=== PATIENT | female | born 1980 | race Caucasian/White ===

== ENCOUNTER 2017-11-19 17:46 | Emergency (ER) | payer SELFPAY ==
[2017-11-19 18:12] LABS: #Basophils 0.1 thou/uL (0.0-0.2); #Eosinphils 0.1 thou/uL (0.0-0.7); #Lymphocytes 2.9 thou/uL (1.20-3.40); #Monocytes 0.7 thou/uL (0.11-0.59); #Neutrophils 3.8 thou/uL (1.40-6.50); %Basophils 0.7 % (0.0-1.0); %Eosinophils 1.9 % (0.0-10.0); %Lymphocytes 38.2 % (21.0-51.0); %Monocytes 9.3 % (0.0-10.0); %Neutrophils 49.9 % (42.0-75.0); Hemoglobin 13.4 g/dL (12.0-16.0); Mean Corpuscular HGB CONC 34.8 g/dL (32.0-36.0); Mean Corpuscular Hemoglobin 30.9 pg (27.0-31.0); Mean Corpuscular Volume 88.8 fL (78.0-98.0); Mean Platelet Volume 8.8 fL (7.4-10.4); Platelet Count 200 thou/uL (130-400); Red Blood Cell (RBC) Count 4.35 mill/uL (4.20-5.40); White Blood Cell (WBC) Count 7.7 thou/uL (4.8-10.8)
[2017-11-19 18:24] LABS: BHCG - Serum Negative (NEGATIVE); Pregs Control Background? CLEAR/WHITE (CLR/WHITE); Pregs Control Bar Appear? YES (CONTROL BAR)
[2017-11-19 18:37] LABS: ALT (SGPT) 13 U/L (8-55); AST (SGOT) 20 U/L (5-34); Albumin 4.5 g/dL (3.5-5.0); Alkaline Phosphatase 105 U/L (40-150); Anion Gap 13 mmol/L (10-20); BUN (Urea Nitrogen) 8 mg/dL (7.0-18.7); Bilirubin, Total 0.6 mg/dL (0.2-1.2); CK (CPK) 76 U/L (29-168); Calc. Creatinine Clearance 0 mL/min (70-130); Calcium 9.6 mg/dL (7.8-10.44); Carbon Dioxide 24 mmol/L (22-29); Chloride 105 mmol/L (98-107); Estimated GFR-MDRD 90; Globulin 2.9 g/dL (2.4-3.5); Glucose 118 mg/dL (70-105); Potassium 3.9 mmol/L (3.5-5.1); Protein, Total 7.4 g/dL (6.0-8.3); Sodium 138 mmol/L (136-145); Troponin I Less than 0.010 ng/mL (< 0.028)
[2017-11-19] MEDS ORDERED: Lorazepam 2 MG/ML VIAL ONE (18:47)
--- NOTE | 2017-11-19 19:16 | RAD ---
PORTABLE AP CHEST X-RAY 11/19/17 HISTORY: Chest pain. COMPARISON: 10/08/09. FINDINGS: The cardiac silhouette and pulmonary vasculature are within normal limits. The lungs remain clear. Th ere has been no interval change from prior exam. IMPRESSION: No acute cardiopulmonary process. POS: [facility]
== END 2017-11-19 19:42 | disposition home or self-care (01) ==
LOC: ERS 17:46
DX: F41.9 Anxiety disorder, unspecified (principal); R07.89 Other chest pain; F17.210 Nicotine dependence, cigarettes, uncomplicated
CPT/HCPCS: 36415; 71045; 80053; 82553; 84484; 84703; 85025; 93005; 96372; J2060

== ENCOUNTER 2018-03-03 09:21 | Emergency (ER) | payer SELFPAY ==
--- NOTE | 2018-03-03 10:14 | RAD ---
RIGHT KNEE 4 VIEWS: Date: 03/03/18 HISTORY: injury, right knee pain. FINDINGS/IMPRESSION: No acute fracture or dislocation is identified. POS: [facility]
--- NOTE | 2018-03-03 10:15 | RAD ---
RIGHT ANKLE 3 VIEWS: Date: 03/03/18 HISTORY: Injury, right ankle pain. FINDINGS/IMPRESSION: The ankle mortise is maintained. No acute fracture or dislocation is seen. POS: [facility]
== END 2018-03-03 10:09 | disposition home or self-care (01) ==
LOC: ERS 09:21
DX: S83.91XA Sprain of unspecified site of right knee, initial encounter (principal); S93.401A Sprain of unspecified ligament of right ankle, initial encounter; F41.8 Other specified anxiety disorders; F17.210 Nicotine dependence, cigarettes, uncomplicated; Z71.6 Tobacco abuse counseling; W23.0XXA Caught, crushed, jammed, or pinched between moving objects, initial encounter
CPT/HCPCS: 99406

== ENCOUNTER 2018-06-08 01:30 | Emergency (ER) | payer SELFPAY ==
[2018-06-08 01:57] LABS: #Basophils 0.1 thou/uL (0.0-0.2); #Eosinphils 0.1 thou/uL (0.0-0.7); #Monocytes 1.1 thou/uL (0.11-0.59); %Basophils 0.9 % (0.0-1.0); %Eosinophils 1.4 % (0.0-10.0); %Lymphocytes 48.7 % (21.0-51.0); %Neutrophils 36.1 % (42.0-75.0); Hemoglobin 13.9 g/dL (12.0-16.0); Mean Corpuscular HGB CONC 33.9 g/dL (32.0-36.0); Mean Corpuscular Hemoglobin 31.2 pg (27.0-31.0); Mean Corpuscular Volume 92.1 fL (78.0-98.0); Mean Platelet Volume 8.7 fL (7.4-10.4); Platelet Count 199 thou/uL (130-400); RBC Distribution Width 11.9 % (11.5-14.5); Red Blood Cell (RBC) Count 4.46 mill/uL (4.20-5.40); White Blood Cell (WBC) Count 8.2 thou/uL (4.8-10.8)
[2018-06-08 02:18] LABS: ALT (SGPT) 14 U/L (8-55); AST (SGOT) 21 U/L (5-34); Albumin 4.2 g/dL (3.5-5.0); Alkaline Phosphatase 102 U/L (40-150); Anion Gap 14 mmol/L (10-20); BUN (Urea Nitrogen) 11 mg/dL (7.0-18.7); Bilirubin, Total 0.3 mg/dL (0.2-1.2); Calc. Creatinine Clearance 0 mL/min (70-130); Calcium 9.1 mg/dL (7.8-10.44); Carbon Dioxide 22 mmol/L (22-29); Chloride 107 mmol/L (98-107); Estimated GFR-MDRD 90; Globulin 2.8 g/dL (2.4-3.5); Glucose 110 mg/dL (70-105); Lipase 26 U/L (8-78); Potassium 3.9 mmol/L (3.5-5.1); Sodium 139 mmol/L (136-145)
[2018-06-08] MEDS ORDERED: Ondansetron PF 4 MG/2 ML Vial ONE (02:36)
[2018-06-08] MEDS ORDERED: Morphine 4 MG/ML VIAL ONE (02:36)
--- NOTE | 2018-06-08 07:45 | ULT ---
RIGHT UPPER QUADRANT ULTRASOUND: INDICATION: Epigastric abdominal pain with nausea and vomiting. TECHNIQUE: Gregg scale color Doppler images were obtained in a right upper quadrant of the abdomen. COMPARISON: Prior exam dated 12/19/2010. FINDINGS: No focal hepatic lesion is identified. The liver measured 13.5 cm. The gallbladder is incompletely distended. Gallbladder wall measured 2.8 mm; however, there is no ev idence of pericholecystic fluid or sonographic Bernal's sign. The common bile duct measured 2.5 mm. Pancreas was largely obscured by overlying bowel gas. The right kidney measured 10.6 x 4.2 x 4.6 cm. No focal renal lesion or hydronephrosis is evident. IMPRESSION: No definite acute sonographic abnormality within the right upper quadrant. POS: [facility]
--- NOTE | 2018-06-08 07:56 | RAD ---
CHEST ONE VIEW: INDICATIONS: Pain. COMPARISON: Prior exam dated 11/19/2017. FINDINGS: The lungs are clear. The cardiomediastinal silhouette is within normal limits. No acute osseous abn ormality is evident. IMPRESSION: No acute cardiopulmonary abnormalities. POS: [facility]
== END 2018-06-08 04:31 | disposition home or self-care (01) ==
LOC: ERS 01:30
DX: K80.50 Calculus of bile duct without cholangitis or cholecystitis without obstruction (principal); F17.210 Nicotine dependence, cigarettes, uncomplicated
CPT/HCPCS: 36415; 71045; 76705; 80053; 83690; 84484; 85025; 93005; 96361; 96374; 96375; J2270; J2405

== ENCOUNTER 2018-12-20 19:07 | Emergency (ER) | payer SELFPAY ==
[2018-12-20 20:59] LABS: #Eosinphils 0.1 thou/uL (0.0-0.7); #Lymphocytes 1.8 thou/uL (1.20-3.40); #Monocytes 0.7 thou/uL (0.11-0.59); #Neutrophils 6.5 thou/uL (1.40-6.50); %Basophils 0.5 % (0.0-1.0); %Eosinophils 0.8 % (0.0-10.0); %Lymphocytes 19.8 % (21.0-51.0); %Monocytes 7.7 % (0.0-10.0); %Neutrophils 71.2 % (42.0-75.0); Hemoglobin 13.8 g/dL (12.0-16.0); Mean Corpuscular Hemoglobin 31.7 pg (27.0-31.0); Mean Corpuscular Volume 93.4 fL (78.0-98.0); Mean Platelet Volume 9.6 fL (7.4-10.4); Platelet Count 199 thou/uL (130-400); RBC Distribution Width 12.1 % (11.5-14.5); Red Blood Cell (RBC) Count 4.36 mill/uL (4.20-5.40); White Blood Cell (WBC) Count 9.2 thou/uL (4.8-10.8)
[2018-12-20 21:15] LABS: ALT (SGPT) 15 U/L (8-55); AST (SGOT) 19 U/L (5-34); Albumin 4.2 g/dL (3.5-5.0); Alkaline Phosphatase 107 U/L (40-150); Anion Gap 12 mmol/L (10-20); BUN (Urea Nitrogen) 7 mg/dL (7.0-18.7); Bilirubin, Total 0.6 mg/dL (0.2-1.2); Calc. Creatinine Clearance 0 mL/min (70-130); Calcium 8.9 mg/dL (7.8-10.44); Carbon Dioxide 25 mmol/L (22-29); Chloride 105 mmol/L (98-107); Estimated GFR-MDRD Greater than 90; Globulin 2.7 g/dL (2.4-3.5); Glucose 96 mg/dL (70-105); Potassium 3.7 mmol/L (3.5-5.1); Protein, Total 6.9 g/dL (6.0-8.3); Sodium 138 mmol/L (136-145)
[2018-12-20] MEDS ORDERED: Metoclopramide HCl 10 MG/2 ML VIAL ONE (21:20)
[2018-12-20] MEDS ORDERED: diphenhydrAMINE 50 MG/ML VIAL ONE (21:22)
--- NOTE | 2018-12-20 22:40 | CT ---
CT Brain WO Con: 12/20/2018 12:00 AM CLINICAL HISTORY: History of headaches. IMAGING TECHNIQUE: Multiple CT images were obtained of the brain without IV contrast. COMPARISON: None. FINDINGS: Infarct: No acute infarct evident. Hemorrhage: None.. Hydrocephalus: None.. Basal cisterns: Normal.. Cerebral parenchyma: Normal.. Midline shift: None.. Cerebellum: Normal. Brainstem: Normal. OTHER: Calvarium: Intact.. Visualized Paranasal sinuses: Clear.. Extracranial soft tissues:Normal. IMPRESSION: No acute intracranial abnormality.
[2018-12-20] MEDS ORDERED: Ketorolac Tromethamine 30 MG/ML VIAL ONE (23:35)
== END 2018-12-21 00:53 | disposition home or self-care (01) ==
LOC: ERS 19:07
DX: R51 Headache (principal); F41.9 Anxiety disorder, unspecified; F17.210 Nicotine dependence, cigarettes, uncomplicated
CPT/HCPCS: 36415; 70450; 80053; 82550; 85025; 96361; 96374; 96375; J1200; J1885; J2765

== ENCOUNTER 2019-02-10 08:38 | Emergency (ER) | payer SELFPAY ==
--- NOTE | 2019-02-10 09:01 | RAD ---
Exam:4 views right knee HISTORY: Pain. Injury. COMPARISON: 03/03/2018 FINDINGS: Joint spaces are preserved. No fracture or malalignment. Confusion. IMPRESSION: Unremarkable 4 views right knee
[2019-02-10] MEDS ORDERED: Ketorolac Tromethamine 30 MG/ML VIAL ONE (09:27)
== END 2019-02-10 09:48 | disposition home or self-care (01) ==
LOC: ERS 08:38
DX: M25.561 Pain in right knee (principal); F17.210 Nicotine dependence, cigarettes, uncomplicated; X50.1XXA Overexertion from prolonged static or awkward postures, initial encounter
CPT/HCPCS: 96372; J1885

== ENCOUNTER 2019-03-09 14:04 | Emergency (ER) | payer SELFPAY ==
[2019-03-09 15:16] LABS: #Basophils 0.1 thou/uL (0.0-0.2); #Eosinphils 0.1 thou/uL (0.0-0.7); #Lymphocytes 2.5 thou/uL (1.20-3.40); #Monocytes 0.8 thou/uL (0.11-0.59); #Neutrophils 5.2 thou/uL (1.40-6.50); %Basophils 0.9 % (0.0-1.0); %Eosinophils 1.2 % (0.0-10.0); %Monocytes 9.2 % (0.0-10.0); %Neutrophils 59.7 % (42.0-75.0); Hemoglobin 13.4 g/dL (12.0-16.0); Mean Corpuscular Hemoglobin 31.5 pg (27.0-31.0); Mean Corpuscular Volume 92.8 fL (78.0-98.0); Mean Platelet Volume 9.2 fL (7.4-10.4); Platelet Count 247 thou/uL (130-400); RBC Distribution Width 11.6 % (11.5-14.5); Red Blood Cell (RBC) Count 4.25 mill/uL (4.20-5.40); White Blood Cell (WBC) Count 8.7 thou/uL (4.8-10.8)
[2019-03-09 15:49] LABS: Bacteria/HPF 4+ HPF (None Seen); Bilirubin Negative (Negative); Blood, Urine Trace (Negative); Clarity Clear (Clear); Glucose, Urine (Dipstick) Normal (Negative); Leukocyte Negative Leu/uL (Negative); Nitrite Negative (Negative); Protein, Urine (Dipstick) Negative (Neg-Trace); RBC/HPF 0-3 HPF (0-3); Squamous Epithelial 0-3 HPF (0-3); Urobilinogen Normal mg/dL (Less than 2); WBC/HPF 0-3 HPF (0-3)
[2019-03-09 15:50] LABS: Pregnancy Test - Urine (BHCG) Negative (Negative); Pregu Control Background? CLEAR/WHITE (CLR/WHITE); Pregu Control Bar Appear? YES (CONTROL BAR); Specific Gravity 1.003 (1.002-1.036)
[2019-03-09 16:00] LABS: Albumin 4.9 g/dL (3.5-5.0); Sodium 139 mmol/L (136-145)
[2019-03-09 16:01] LABS: ALT (SGPT) 15 U/L (8-55); AST (SGOT) 28 U/L (5-34); Alkaline Phosphatase 118 U/L (40-110); Anion Gap 17 mmol/L (10-20); BUN (Urea Nitrogen) 8 mg/dL (7.0-18.7); Bilirubin, Total 0.5 mg/dL (0.2-1.2); Calc. Creatinine Clearance 0 mL/min (70-130); Calcium 9.7 mg/dL (7.8-10.44); Carbon Dioxide 22 mmol/L (22-29); Chloride 104 mmol/L (98-107); Estimated GFR-MDRD 77; Globulin 3.6 g/dL (2.4-3.5); Glucose 94 mg/dL (70-105); Potassium 4.3 mmol/L (3.5-5.1); Protein, Total 8.5 g/dL (6.0-8.3)
== END 2019-03-09 16:26 | disposition home or self-care (01) ==
LOC: ERS 14:04
DX: R00.2 Palpitations (principal); F17.210 Nicotine dependence, cigarettes, uncomplicated
CPT/HCPCS: 36415; 80053; 81003; 81015; 81025; 84484; 85025; 85379; 93005; 94760

== ENCOUNTER 2019-03-17 18:50 | Observation (INO) | payer SELFPAY ==
[2019-03-17] MEDS ORDERED: Ibuprofen 800 MG TAB ONE (20:06)
[2019-03-17 20:09] LABS: BHCG - Serum Negative (NEGATIVE); Pregs Control Background? CLEAR/WHITE (CLR/WHITE); Pregs Control Bar Appear? YES (CONTROL BAR)
[2019-03-17 20:31] LABS: Thyroid Stimulating Hormone 0.8633 uIU/mL (0.35-4.94)
[2019-03-17 20:48] LABS: ALT (SGPT) 9 U/L (8-55); AST (SGOT) 17 U/L (5-34); Albumin 4.7 g/dL (3.5-5.0); Alkaline Phosphatase 113 U/L (40-110); Anion Gap 12 mmol/L (10-20); BUN (Urea Nitrogen) 9 mg/dL (7.0-18.7); Bilirubin, Total 0.4 mg/dL (0.2-1.2); Calc. Creatinine Clearance 0 mL/min (70-130); Calcium 9.2 mg/dL (7.8-10.44); Carbon Dioxide 26 mmol/L (22-29); Chloride 104 mmol/L (98-107); Estimated GFR-MDRD 83; Globulin 2.6 g/dL (2.4-3.5); Glucose 104 mg/dL (70-105); Potassium 4.1 mmol/L (3.5-5.1); Protein, Total 7.3 g/dL (6.0-8.3); Sodium 138 mmol/L (136-145)
--- NOTE | 2019-03-17 20:48 | RAD ---
Chest one view HISTORY: Chest pain. Tachycardia. COMPARISON: 06/08/2018. FINDINGS: Cardiac silhouette is magnified by projection. Pulmonary vasculature is unremarkable. Media stinum is midline. No lobar consolidation or evidence of pneumothorax. IMPRESSION: No active cardiopulmonary abnormalities are demonstrated.
[2019-03-17 21:03] LABS: #Basophils 0.1 thou/uL (0.0-0.2); #Eosinphils 0.1 thou/uL (0.0-0.7); #Lymphocytes 2.1 thou/uL (1.20-3.40); #Monocytes 0.8 thou/uL (0.11-0.59); #Neutrophils 4.6 thou/uL (1.40-6.50); %Basophils 0.7 % (0.0-1.0); %Eosinophils 0.8 % (0.0-10.0); %Lymphocytes 27.4 % (21.0-51.0); %Monocytes 10.8 % (0.0-10.0); %Neutrophils 60.4 % (42.0-75.0); Hemoglobin 12.9 g/dL (12.0-16.0); Mean Corpuscular HGB CONC 33.9 g/dL (32.0-36.0); Mean Corpuscular Hemoglobin 31.7 pg (27.0-31.0); Mean Corpuscular Volume 93.4 fL (78.0-98.0); Mean Platelet Volume 9.3 fL (7.4-10.4); Platelet Count 194 thou/uL (130-400); RBC Distribution Width 11.6 % (11.5-14.5); Red Blood Cell (RBC) Count 4.08 mill/uL (4.20-5.40); White Blood Cell (WBC) Count 7.6 thou/uL (4.8-10.8)
[2019-03-17 21:32] LABS: Amphetamine Not Detected (NotDetected); Barbiturates Screen Not Detected (NotDetected); Benzodiazepine Screen Not Detected (NotDetected); Cocaine Metabolite Screen Not Detected (NotDetected); Medtox Control Line Valid? VALID (VALID); Medtox Reader # READER 4; Methadone Not Detected (NotDetected); Methamphetamine Not Detected (NotDetected); Opiate Screen Not Detected (NotDetected); Oxycodone Screen Not Detected (NotDetected); Phencyclidine (PCP) Not Detected (NotDetected); THC/Cannabinoid Screen Not Detected (NotDetected); Tricyclic Screen Not Detected (NotDetected)
[2019-03-17] MEDS ORDERED: Aspirin 325 MG TAB ONE (23:33)
[2019-03-17] MEDS ORDERED: Acetaminophen 500 MG TAB ONE (23:33)
[2019-03-18 00:10] LABS: Troponin I Less than 0.010 ng/mL (< 0.028)
[2019-03-18 01:23] VITALS: BMI 26.3
[2019-03-18 03:45] LABS: Troponin I Less than 0.010 ng/mL (< 0.028)
[2019-03-18] MEDS ORDERED: ALPRAZolam 0.25 MG TAB PO PRN (08:01)
[2019-03-18] MEDS ORDERED: Nitroglycerin 0.4 MG TAB (25 Tab Bottle) PO PRN (08:05)
[2019-03-18] MEDS ORDERED: Ondansetron ODT 4 MG TAB PO PRN (08:08)
[2019-03-18] MEDS ORDERED: Acetaminophen 325 MG TAB PO PRN (08:08)
[2019-03-18] MEDS ORDERED: Ondansetron PF 4 MG/2 ML Vial IVP PRN (08:08)
[2019-03-18] MEDS ORDERED: Calcium Carbonate 500 MG ChewTAB PO PRN (08:08)
[2019-03-18] MEDS ORDERED: Loratadine 10 MG TAB PO PRN (08:11)
[2019-03-18] MEDS ORDERED: diphenhydrAMINE 25 MG CAP PO PRN (08:11)
[2019-03-18] MEDS: Famotidine 20 MG TAB PO SCH ×2 (08:43→20:29)
[2019-03-18] MEDS ORDERED: Aspirin 325 mg Enteric Coated Tablet PO SCH (09:00)
[2019-03-18] MEDS ORDERED: FLU VACC QS2019-20(6MOS UP)/PF 60 MCG/0.5 ML SYRINGE IM ONE (21:00)
--- NOTE | 2019-03-19 00:26 | HP ---
PRIMARY CARE PHYSICIAN: None. CHIEF COMPLAINT: Palpitations along with chest discomfort. HISTORY OF PRESENT ILLNESS: The patient is a 38-year-old female with tobacco dependence and family history of heart disease, presented to the hospital with palpitations that started while she was resting at home. Heart rate was in 150s to 160s. She checked her heart rate on the pulse ox machine. It lasted for few minutes and then it came back. She also had chest discomfort radiating to her left shoulder at that time. She felt nauseous without any lightheadedness, dizziness or syncope. No recent immobilization, travel, orthopnea, leg swelling reported. She had similar episode a year ago. She denies previous cardiac workup. In the emergency room, her initial vital signs showed temperature of 98.6, respirations of 16, pulse of 115, blood pressure of 138/89 with O2 saturation of 98% on room air. Her EKG showed sinus tachycardia with heart rate of 110. She received aspirin in the emergency room. PAST MEDICAL HISTORY: History of preeclampsia in the past and anxiety disorder. PAST SURGICAL HISTORY: 1. Appendectomy. 2. section x2. 3. Hysterectomy. 4. Right knee surgery. 5. Tonsillectomy. ALLERGIES: THE PATIENT IS ALLERGIC TO PENICILLIN AND HYDROCODONE. MEDICATIONS: Current home medications reviewed with the patient and none. SOCIAL HISTORY: The patient smokes up to half pack a day on a daily basis. She also consumes around [address] Pepper daily. She drinks alcohol 2 to 3 days a week. Denies any heavy alcohol abuse. Denies any drug use. FAMILY HISTORY: Positive for heart disease in her father. REVIEW OF SYSTEMS: All other review of systems were reviewed and were found negative. PHYSICAL EXAMINATION: VITAL SIGNS: As discussed above. GENERAL: 38-year-old female, in no apparent distress. Denies any chest discomfort at this time. HEENT: Head, atraumatic and normocephalic. Sclerae anicteric. Moist mucous membranes. No oral lesion. NECK: Supple. No JVD. No carotid bruit. LUNGS: Clear to auscultation bilaterally. No wheezing, rales or rhonchi. HEART: S1 and S2 present. Regular rate and rhythm. No rubs or gallops. There was 2/6 systolic murmur over the aortic area and mitral area. SKIN: Warm and dry. ABDOMEN: Soft and nontender. Bowel sounds present. EXTREMITIES: No edema or calf tenderness. NEUROLOGIC: Grossly nonfocal. Moves all 4 extremities. PSYCHIATRIC: Alert, awake, and oriented x3. LYMPH NODE: No palpable lymph nodes in the neck. LABORATORY FINDINGS: Electrolytes in normal range. BUN 9 and creatinine 0.78. WBC 7.6 with hemoglobin 12.9. Urine drug screen was negative. EKG by my review showed sinus tachycardia. Chest x-ray by my review was negative for infiltrate. IMPRESSION: 1. Chest pain with palpitations of unclear etiology. 2. Ongoing tobacco dependence. 3. Chronic kidney disease, stage 2. 4. Anxiety. PLAN: The patient will be monitored on the telemetry unit. Echocardiogram will be ordered. We will also get an exercise Cardiolite stress test. We will continue aspirin. Lifestyle modification including tobacco cessation was emphasized. It is unclear what rhythm she had at home and heart rate was in 150s. She may benefit from an event monitor as outpatient. Cardiology will be consulted. Her troponins were normal. Plan was discussed with the patient in detail. She stated understanding. Job ID: [id number]
--- NOTE | 2019-03-19 00:41 | CON ---
DATE OF CONSULTATION: 03/18/2019 REASON FOR CONSULTATION: Chest pressure, palpitations. HISTORY OF PRESENT ILLNESS: Ms. Borjas is a very pleasant 38-year-old woman admitted to the hospital yesterday with a feeling of pressure in her chest and a rapid heart rate. She had a pulse oximeter, heart rates, it is 130-140 and even up to 150. She had sinus tachycardia here, rate of 110. Cardiac enzymes were negative. EKG is otherwise unremarkable. The patient had never these episodes before. The patient otherwise has been in good physical condition. REVIEW OF SYSTEMS: CONSTITUTIONAL: No significant weight gain or loss. VISION: No changes. HEARING: No changes. PULMONARY: No cough or wheezing. GASTROINTESTINAL: No nausea, vomiting, diarrhea. SKIN: No rashes. NEUROLOGIC: No unilateral weakness or numbness. PSYCHIATRIC: No unusual depression or anxiety. PHYSICAL EXAMINATION: GENERAL: This is a pleasant 38-year-old woman resting comfortably, in no distress. VITAL SIGNS: Her blood pressure is 143/90, pulse 86 regular, earlier it was 104. LUNGS: Clear. CARDIAC: Normal S1, normal S2. ABDOMEN: Soft, nontender. EXTREMITIES: No clubbing. No cyanosis. No edema. Pulses are normal. The cardiac enzymes are all negative. Stress test was negative. She spent 10 minutes on a Albino protocol. No EKG changes. Echocardiogram was also normal. CONCLUSION: 1. No evidence of any stress-induced ischemia. 2. Normal echocardiogram. 3. Symptoms suggest inappropriate sinus tachycardia. The heart rate went up and down gradually. 4. Hypertension. PLAN: 1. Start on low-dose beta blockers. 2. Check a lipid profile tomorrow. 3. Recommend, she quit smoking. 4. No other recommendations. Job ID: [id number]
[2019-03-19 05:46] LABS: Cardiac Risk 2.8 (Less than 4.5)
[2019-03-19] MEDS: Famotidine 20 MG TAB PO SCH (07:48)
[2019-03-19 08:08] VITALS: TEMP 98.8
[2019-03-19] MEDS ORDERED: Aspirin 81 mg Enteric Coated Tablet PO SCH (09:00)
[2019-03-19 11:55] VITALS: BP 140/94
--- NOTE | 2019-03-20 21:48 | DIS ---
DATE OF ADMISSION: 03/18/2019 DATE OF DISCHARGE: 03/19/2019 FINAL DIAGNOSES AT THE TIME OF DISCHARGE: 1. Hypertension. 2. Chest pressure, resolved. 3. Inappropriate sinus tachycardia, resolved. ASP NET SOFTWARE DEVELOPER: Dr. Sandy, Cardiology Service. HOSPITAL COURSE: The patient is a 38-year-old female, who was admitted to the hospital with symptoms of palpitations along with some chest discomfort type of fullness. Apparently, she is a smoker and she has a family history of heart disease. She has some chest discomfort radiating to the left shoulder with heart rate up to 150s. She felt nauseous. Apparently, she had similar episodes a year ago. She denied any previous cardiac workup. In the emergency room, her pulse was up to 115, blood pressure was 138/89, pulse oximeter was 98% on room air. Electrocardiogram showed sinus tachycardia with heart rate of 110. She received aspirin in the emergency room and got admitted for further evaluation. Chest x-ray was negative. The patient was set up for Cardiolite stress test and Cardiology consultation. Her troponins were normal. Her echocardiogram came back normal, LVEF was estimated at 60% to 65%. Her stress test came back negative. There was no any evidence of stress-induced ischemia. The patient was placed on small dose of metoprolol succinate 25 mg once a day for her tachycardia and she is doing well. Her blood pressure is 148/90, pulse is 100, temperature is 98.6, respirations 16, and O2 saturation is 99% on room air. She is seen and examined before she is discharged and she is discharged home in good condition. MEDICATIONS: At time of discharge: 1. Metoprolol succinate 25 mg once a day. 2. Alprazolam 0.5 mg daily p.r.n. DIET: She is going to stay on regular diet. ACTIVITIES: As tolerated. She will establish relationship with primary care physician. We recommended her to go to [facility] since she has some financial issues in a week and she promised to do that. TIME SPENT: Time spent on this discharge is less than 30 minutes. Job ID: [id number]
== END 2019-03-19 12:15 | disposition home or self-care (01) ==
LOC: ERS 18:50 → 2SW 03-18 01:17
PROVIDERS: ADMIT Family Medicine; ATTEND Family Medicine
DX: R07.89 Other chest pain (principal); R00.0 Tachycardia, unspecified; I12.9 Hypertensive chronic kidney disease with stage 1 through stage 4 chronic kidney disease, or unspecified chronic kidney disease; N18.2 Chronic kidney disease, stage 2 (mild); F41.9 Anxiety disorder, unspecified; F17.210 Nicotine dependence, cigarettes, uncomplicated; Z79.899 Other long term (current) drug therapy; Z88.0 Allergy status to penicillin; Z88.5 Allergy status to narcotic agent
CPT/HCPCS: 36415; 71045; 80053; 80061; 80306; 84443; 84484; 84703; 85025; 90471; 90686; 90732; 93005; 93017; 93306; 96360; G0008; G0009; G0378

== ENCOUNTER 2019-05-18 09:32 | Emergency (ER) | payer SELFPAY ==
[2019-05-18 10:02] LABS: #Basophils 0.1 thou/uL (0.0-0.2); #Eosinphils 0.1 thou/uL (0.0-0.7); #Lymphocytes 1.6 thou/uL (1.20-3.40); #Monocytes 0.7 thou/uL (0.11-0.59); #Neutrophils 5.6 thou/uL (1.40-6.50); %Basophils 0.8 % (0.0-1.0); %Eosinophils 0.8 % (0.0-10.0); %Lymphocytes 19.7 % (21.0-51.0); %Neutrophils 69.8 % (42.0-75.0); Hemoglobin 13.2 g/dL (12.0-16.0); Mean Corpuscular HGB CONC 33.7 g/dL (32.0-36.0); Mean Corpuscular Hemoglobin 31.1 pg (27.0-31.0); Mean Corpuscular Volume 92.1 fL (78.0-98.0); Mean Platelet Volume 9.9 fL (7.4-10.4); Platelet Count 183 thou/uL (130-400); RBC Distribution Width 11.3 % (11.5-14.5); Red Blood Cell (RBC) Count 4.26 mill/uL (4.20-5.40)
[2019-05-18 10:21] LABS: ALT (SGPT) 13 U/L (8-55); AST (SGOT) 18 U/L (5-34); Albumin 4.2 g/dL (3.5-5.0); Alkaline Phosphatase 93 U/L (40-110); Anion Gap 12 mmol/L (10-20); BUN (Urea Nitrogen) 5 mg/dL (7.0-18.7); Bilirubin, Total 1.1 mg/dL (0.2-1.2); Calc. Creatinine Clearance 0 mL/min (70-130); Calcium 8.9 mg/dL (7.8-10.44); Carbon Dioxide 24 mmol/L (22-29); Chloride 106 mmol/L (98-107); Estimated GFR-MDRD Greater than 90; Globulin 2.8 g/dL (2.4-3.5); Glucose 79 mg/dL (70-105); Potassium 3.9 mmol/L (3.5-5.1); Sodium 138 mmol/L (136-145)
[2019-05-18 11:25] LABS: Bacteria/HPF 1+ HPF (None Seen); Bilirubin Negative (Negative); Blood, Urine 1+ (Negative); Clarity Clear (Clear); Glucose, Urine (Dipstick) Normal (Negative); Leukocyte Negative Leu/uL (Negative); Nitrite Negative (Negative); Protein, Urine (Dipstick) Negative (Neg-Trace); RBC/HPF 0-3 HPF (0-3); Squamous Epithelial 0-3 HPF (0-3); Urobilinogen Normal mg/dL (Less than 2); WBC/HPF 0-3 HPF (0-3)
== END 2019-05-18 11:55 | disposition home or self-care (01) ==
LOC: ERS 09:32
DX: I95.9 Hypotension, unspecified (principal); R42 Dizziness and giddiness; R55 Syncope and collapse; T43.225A Adverse effect of selective serotonin reuptake inhibitors, initial encounter; F17.210 Nicotine dependence, cigarettes, uncomplicated; Z79.899 Other long term (current) drug therapy
CPT/HCPCS: 80053; 81003; 81015; 84484; 85025; 93005

== ENCOUNTER 2019-05-19 02:09 | Emergency (ER) | payer SELFPAY ==
[2019-05-19] MEDS ORDERED: Meclizine HCl 25 MG TAB ONE ×2 (02:41→02:42)
[2019-05-19] MEDS ORDERED: Ondansetron ODT 8 MG TAB ONE (02:41)
== END 2019-05-19 03:25 | disposition home or self-care (01) ==
LOC: ERS 02:09
DX: R42 Dizziness and giddiness (principal); R11.2 Nausea with vomiting, unspecified; F41.1 Generalized anxiety disorder; F43.0 Acute stress reaction; F17.210 Nicotine dependence, cigarettes, uncomplicated; Z79.899 Other long term (current) drug therapy
CPT/HCPCS: 99283; J8597

== ENCOUNTER 2019-07-15 20:26 | Emergency (ER) | payer SELFPAY ==
[~2019-07-15 20:26] MED LIST: Iopamidol-370 76% 500 ML 1 ML ONE
[2019-07-15 21:14] LABS: Hemoglobin 14.5 g/dL (12.0-16.0); Mean Corpuscular HGB CONC 33.6 g/dL (32.0-36.0); Mean Corpuscular Hemoglobin 31.5 pg (27.0-31.0); Mean Corpuscular Volume 93.6 fL (78.0-98.0); Platelet Count 206 thou/uL (130-400); RBC Distribution Width 11.7 % (11.5-14.5); Red Blood Cell (RBC) Count 4.59 mill/uL (4.20-5.40); White Blood Cell (WBC) Count 14.4 thou/uL (4.8-10.8)
[2019-07-15 21:25] LABS: ALT (SGPT) 13 U/L (8-55); AST (SGOT) 22 U/L (5-34); Albumin 4.8 g/dL (3.5-5.0); Alkaline Phosphatase 107 U/L (40-110); Anion Gap 14 mmol/L (10-20); BUN (Urea Nitrogen) 8 mg/dL (7.0-18.7); Bilirubin, Total 0.6 mg/dL (0.2-1.2); Calc. Creatinine Clearance 0 mL/min (70-130); Calcium 9.6 mg/dL (7.8-10.44); Carbon Dioxide 24 mmol/L (22-29); Chloride 103 mmol/L (98-107); Estimated GFR-MDRD 86; Globulin 2.9 g/dL (2.4-3.5); Glucose 117 mg/dL (70-105); Lipase 26 U/L (8-78); Potassium 3.6 mmol/L (3.5-5.1); Protein, Total 7.7 g/dL (6.0-8.3); Sodium 137 mmol/L (136-145)
[2019-07-15 21:31] LABS: Band 1 % (5-11); Eosinophils 30 % (0-10); Lymphocytes 30 % (21-51); MDiff Complete? YES; Monocytes 3 % (0-10); Neutrophil 36 % (42-75); RBC Morphology Normal
[2019-07-15 21:48] LABS: Bilirubin Negative (Negative); Blood, Urine Small (Negative); Glucose, Urine (Dipstick) Negative (Negative); Leukocyte Negative (Negative); Nitrite Negative (Negative); Protein, Urine (Dipstick) Negative (Neg-Trace); Urobilinogen 0.2 mg/dL (Less than 2)
[2019-07-15 21:49] LABS: Clarity Clear (Clear)
[2019-07-15 21:51] LABS: Pregnancy Test - Urine (BHCG) Negative (Negative)
[2019-07-15 21:52] LABS: Pregu Control Background? CLEAR/WHITE (CLR/WHITE); Pregu Control Bar Appear? YES (CONTROL BAR); Specific Gravity 1.003 (1.002-1.036)
[2019-07-15 21:54] LABS: RBC/HPF 0-3 HPF (0-3); Squamous Epithelial 0-3 HPF (0-3); WBC/HPF 0-3 HPF (0-3)
[2019-07-15 21:55] LABS: Bacteria/HPF Rare-Few HPF (None Seen)
[2019-07-15] MEDS ORDERED: Mag-Al 1200 mg/1200 mg/30 ML UDCUP ONE (21:59)
[2019-07-15] MEDS ORDERED: Ondansetron ODT 4 MG TAB ONE (21:59)
[2019-07-15] MEDS ORDERED: Lidocaine Viscous Sol 2% 15 ml UD Cup ONE (21:59)
--- NOTE | 2019-07-15 22:44 | CT ---
CT abdomen and pelvis: 07/15/2019 COMPARISON: 05/30/2015 HISTORY: Abdominal pain, elevated white blood cell count TECHNIQUE: Axial CT imaging at 5 mm intervals from the lung bases through the pubic symphysis with IV contrast. Coronal and sagittal reformatted imaging obtained. FINDINGS: No free intraperitoneal air or fluid is seen. The liver, spleen, gallbladder, pancreas, adrenal glands, and kidneys are unremarkable. Limited assessment of the bowel without oral contrast media demonstrates no evidence for inflammatory change or obstruction. There is a linear density along the medial aspect of the cecum which may represent a suture line. Question a history of prior appendectomy. There is a low-density lesion within the right lower quadrant/anterior right hemipelvis measuring 3.3 x 5.6 x 4.5 cm. It is primarily hypodense, with Hounsfield units in the 15-20 range. Along its posterior margin there is a round peripherally hyperdense component on axial image 62 measuring 1 cm. This is felt to most likely represent a nonspecific complex cystic right ovarian/adnexal mass. There is atherosclerotic calcification of the infrarenal abdominal aorta and bilateral common iliac a rteries. No abdominal or pelvic lymphadenopathy is seen. There is a retroaortic left renal vein. There is a nonspecific small pulmonary nodule on image 4 within the left lower lobe measuring 5 mm, u nchanged when compared to the 2016 exam. No worrisome lytic or blastic bone lesion. IMPRESSION: Low-density mass in the right lower quadrant as detailed above.
--- NOTE | 2019-07-16 | ULT ---
Pelvic ultrasound: 07/15/2019 COMPARISON: None HISTORY: Right ovarian cyst noted on recent CT examination TECHNIQUE: Multiplanar grayscale sonographic imaging of the pelvis obtained with transabdominal imagi ng. The ovaries are assessed with color flow and spectral analysis FINDINGS: The uterus is surgically absent. Left ovary measures 2.2 x 1.9 x 2.5 cm and right ovary talya sures 4.2 x 3.0 x 6.0 cm. There appear to be 2 cysts adjacent to one another within the right ovary measuring 3.5 x 2.0 x 3.2 cm and 3.9 x 2.5 x 2.3 cm respectively. As they abut one another, a single large complex cystic lesion cannot be fully excluded. Left ovary demonstrates no evidence for mass lesion. There is no free fluid in the pelvis. IMPRESSION: Cysts and/or complex large cyst within right ovary. Normal blood flow is noted within vy ateral ovaries. Recommend follow-up pelvic ultrasound in 6 weeks for further assessment of the right ovarian cystic lesion(s).
== END 2019-07-16 00:36 | disposition home or self-care (01) ==
LOC: ERS 20:26
DX: N83.201 Unspecified ovarian cyst, right side (principal); F17.210 Nicotine dependence, cigarettes, uncomplicated; Z79.899 Other long term (current) drug therapy
CPT/HCPCS: 74177; 76856; 80053; 81003; 81015; 81025; 83690; 85025; 93005; Q0162; Q9967

== ENCOUNTER 2019-08-13 05:39 | Emergency (ER) | payer SELFPAY ==
[2019-08-13] MEDS ORDERED: Morphine 4 MG/ML VIAL ONE (05:51)
[2019-08-13] MEDS ORDERED: Ondansetron PF 4 MG/2 ML Vial ONE (05:51)
[2019-08-13 06:07] LABS: #Basophils 0.1 thou/uL (0.0-0.2); #Eosinphils 1.9 thou/uL (0.0-0.7); #Lymphocytes 3.2 thou/uL (1.20-3.40); #Monocytes 0.7 thou/uL (0.11-0.59); #Neutrophils 3.7 thou/uL (1.40-6.50); %Basophils 1.1 % (0.0-1.0); %Eosinophils 19.3 % (0.0-10.0); %Lymphocytes 33.4 % (21.0-51.0); %Monocytes 7.4 % (0.0-10.0); %Neutrophils 38.9 % (42.0-75.0); Hemoglobin 14.4 g/dL (12.0-16.0); Mean Corpuscular HGB CONC 34.6 g/dL (32.0-36.0); Mean Corpuscular Hemoglobin 32.5 pg (27.0-31.0); Mean Corpuscular Volume 93.8 fL (78.0-98.0); Mean Platelet Volume 9.6 fL (7.4-10.4); Platelet Count 216 thou/uL (130-400); RBC Distribution Width 11.6 % (11.5-14.5); Red Blood Cell (RBC) Count 4.42 mill/uL (4.20-5.40); White Blood Cell (WBC) Count 9.6 thou/uL (4.8-10.8)
[2019-08-13 06:16] LABS: BHCG - Serum Negative (NEGATIVE); Pregs Control Background? CLEAR/WHITE (CLR/WHITE); Pregs Control Bar Appear? YES (CONTROL BAR)
[2019-08-13 06:33] LABS: ALT (SGPT) 14 U/L (8-55); AST (SGOT) 21 U/L (5-34); Albumin 4.5 g/dL (3.5-5.0); Alkaline Phosphatase 98 U/L (40-110); Anion Gap 9 mmol/L (10-20); BUN (Urea Nitrogen) 6 mg/dL (7.0-18.7); Bilirubin, Total 0.5 mg/dL (0.2-1.2); Calc. Creatinine Clearance 0 mL/min (70-130); Calcium 9.1 mg/dL (7.8-10.44); Carbon Dioxide 28 mmol/L (22-29); Chloride 103 mmol/L (98-107); Estimated GFR-MDRD Greater than 90; Globulin 2.9 g/dL (2.4-3.5); Glucose 89 mg/dL (70-105); Lipase 37 U/L (8-78); Potassium 3.8 mmol/L (3.5-5.1); Protein, Total 7.4 g/dL (6.0-8.3); Sodium 136 mmol/L (136-145)
[2019-08-13] MEDS ORDERED: Fentanyl 100 MCG/2 ML VIAL ONE (06:35)
[2019-08-13 06:48] LABS: Bacteria/HPF 1+ HPF (None Seen); Bilirubin Negative (Negative); Blood, Urine 2+ (Negative); Clarity Clear (Clear); Glucose, Urine (Dipstick) Normal (Negative); Leukocyte Negative Leu/uL (Negative); Nitrite 1+ (Negative); Protein, Urine (Dipstick) Negative (Neg-Trace); Urobilinogen Normal mg/dL (Less than 2); WBC/HPF None Seen HPF (0-3)
--- NOTE | 2019-08-13 08:37 | ULT ---
PELVIC ULTRASOUND: HISTORY: Pelvic pain. COMPARISON: 07/15/19 TECHNIQUE: Multiplanar meyer-scale and color Doppler images were obtained in a transvaginal pelvic ultrasound. Sp ectral analysis of the Doppler wave-forms of the ovaries was performed. FINDINGS: The uterus has been removed. There are two cystic structures in the right ovary. These are complex an d possibly hemorrhagic. The largest measures 6.6 cm in size. There is a simple cystic structure in th e left ovary, measuring 3.2 cm in size. IMPRESSION: Bilateral ovarian cysts. The cysts in the right ovary may be hemorrhagic. POS: [facility]
--- NOTE | 2019-08-13 08:49 | CT ---
CT ABDOMEN AND PELVIS: 08/13/2019 HISTORY: Abrupt onset of left lower quadrant pain/pelvic pain. COMPARISON: 07/15/2019 TECHNIQUE: Axial CT imaging at 5 mm intervals from the lung bases through the pubic symphysis with intravenous c ontrast. Coronal and sagittal reformatted imaging obtained. FINDINGS: The visualized lung bases appear grossly unremarkable. No free intraperitoneal air. No focal liver lesion is evident. The spleen, gallbladder, pancreas, kidneys and adrenal glands appea r unremarkable. There are two new prominent left ovarian low density lesions abutting one another, measuring 5.1 and 4.3 cm, respectively, suggesting two prominent new right ovarian cysts. There is a thin division betw een these two lesions. An alternative possibility is a single septated left ovarian cyst, which would measure, in total, 7.5 x 5.2 cm. There is no adjacent free fluid. Limited assessment of the bowel without oral contrast media appears unremarkable. There is a low density lesion within the right hemipelvis, suggesting a prominent right ovarian cyst, measuring 3.3 x 4.6 cm on today's examination, decreased from 3.4 x 5.6 cm on the 07/15/2019 examina tion. There is a retroaortic left renal vein. There is mild atherosclerotic calcification within the abdomi nal aorta. No acute osseous abnormality is seen. No significant free fluid is seen in the abdomen/pelvis. IMPRESSION: 1. Interval development of prominent cyst/cysts within the left ovary, as detailed above. 2. No evidence for free intraperitoneal air or small bowel obstruction. POS: [facility]
[2019-08-13] MEDS ORDERED: Iopamidol-370 76% 500 ML 1 ML ONE (12:24)
[2019-08-15 00:42] LABS: Chlamydia by PCR Not Detected (NotDetected); GC by PCR Not Detected (NotDetected)
== END 2019-08-13 08:45 | disposition home or self-care (01) ==
LOC: ERS 05:39
DX: N83.202 Unspecified ovarian cyst, left side (principal); N83.201 Unspecified ovarian cyst, right side; F41.9 Anxiety disorder, unspecified; F17.210 Nicotine dependence, cigarettes, uncomplicated; Z79.899 Other long term (current) drug therapy
CPT/HCPCS: 74177; 76856; 80053; 81003; 81015; 83690; 84703; 85025; 87077; 87086; 87186; 87491; 87591; 96361; 96374; 96375; J2270; J2405; J3010; Q9967

== ENCOUNTER 2020-02-06 10:37 | Observation (INO) | payer OTHER, SELFPAY ==
[2020-02-06 11:14] LABS: #Basophils 0.1 thou/uL (0.0-0.2); #Eosinphils 0.1 thou/uL (0.0-0.7); #Monocytes 0.9 thou/uL (0.11-0.59); #Neutrophils 4.6 thou/uL (1.40-6.50); %Basophils 1.1 % (0.0-1.0); %Lymphocytes 26.4 % (21.0-51.0); %Monocytes 11.8 % (0.0-10.0); %Neutrophils 59.7 % (42.0-75.0); Mean Corpuscular HGB CONC 33.3 g/dL (32.0-36.0); Mean Corpuscular Hemoglobin 31.9 pg (27.0-31.0); Mean Corpuscular Volume 95.8 fL (78.0-98.0); Mean Platelet Volume 9.7 fL (7.4-10.4); Platelet Count 189 thou/uL (130-400); White Blood Cell (WBC) Count 7.6 thou/uL (4.8-10.8)
[2020-02-06 11:50] LABS: ALT (SGPT) 10 U/L (8-55); Alkaline Phosphatase 115 U/L (40-110); Calc. Creatinine Clearance 0 mL/min (70-130); Chloride 106 mmol/L (98-107); Estimated GFR-MDRD Greater than 90; Globulin 2.8 g/dL (2.4-3.5); Potassium 3.7 mmol/L (3.5-5.1); Protein, Total 6.8 g/dL (6.0-8.3); Sodium 137 mmol/L (136-145)
[2020-02-06] MEDS ORDERED: Morphine 4 MG/ML VIAL ONE ×2 (11:58→16:27)
[2020-02-06] MEDS ORDERED: Ondansetron PF 4 MG/2 ML Vial ONE (11:58)
[2020-02-06 12:14] LABS: AST (SGOT) 18 U/L (5-34); Anion Gap 13 mmol/L (10-20); BUN (Urea Nitrogen) 6 mg/dL (7.0-18.7); Calcium 8.8 mg/dL (7.8-10.44); Carbon Dioxide 21 mmol/L (22-29); Glucose 99 mg/dL (70-105); Lipase 32 U/L (8-78)
[2020-02-06] MEDS ORDERED: Ketorolac Tromethamine 30 MG/ML VIAL ONE (13:38)
[2020-02-06 13:44] LABS: Bacteria/HPF None Seen HPF (None Seen); Bilirubin Negative (Negative); Blood, Urine 1+ (Negative); Clarity Clear (Clear); Glucose, Urine (Dipstick) Normal (Negative); Ketone, Urine Negative (Negative); Leukocyte Negative Leu/uL (Negative); Nitrite Negative (Negative); Protein, Urine (Dipstick) Negative (Neg-Trace); RBC/HPF 0-3 HPF (0-3); Specific Gravity, Urine 1.011 (1.002-1.036); Squamous Epithelial 0-3 HPF (0-3); Urobilinogen Normal mg/dL (Less than 2); WBC/HPF 0-3 HPF (0-3)
[2020-02-06 13:46] LABS: Pregnancy Test - Urine (BHCG) Negative (Negative); Pregu Control Background? CLEAR/WHITE (CLR/WHITE); Pregu Control Bar Appear? YES (CONTROL BAR); Specific Gravity 1.011 (1.002-1.036)
--- NOTE | 2020-02-06 13:57 | CT ---
CT ABDOMEN AND PELVIS PERFORMED WITH CONTRAST ENHANCEMENT: HISTORY: Abdominal pain that started this morning. Pain in the lower abdomen. The patient reports a partial hysterectomy as well as appendectomy. COMPARISON: A 08/13/2019 exam. FINDINGS: The lung bases are clear. The liver shows an element of fatty change. The spleen and pancreas regions appear unremarkable. Th e gallbladder is normal in size. Right and left adrenal glands and right and left kidneys are normal. There is no significant periaor tic or mesenteric adenopathy. There is a retroaortic left renal vein. There is some atherosclerotic change within the aorta. There is some fatty change to the wall of the colon. This can be a nonspe cific finding sometimes associated with inflammatory bowel disease. It also can be seen related to p atient body habitus. CT OF PELVIS PERFORMED WITH CONTRAST ENHANCEMENT: The uterus appears to have been removed. There are some small follicles involving the left adnexal r egion. This has a much less prominent appearance than on the previous exam. On the right side, the large cyst has increased in size as compared to that prior examination. It measured 3.3 x 4.5 cm on the prior exam. On today's study it measures approximately 4.8 x 8.1 cm. There is an enhancing foll icle along the medial edge of this larger cyst. Some enhancement along the anterior periphery which may represent residual ovarian tissue. There is no free fluid or inflammatory change. IMPRESSION: 1. Fatty change of the liver with some fatty change of the wall of the colon. 2. Interval enlargement of the right ovarian cyst now measuring 4.8 x 8.1 cm. 3. Post hysterectomy. POS: [facility]
--- NOTE | 2020-02-06 15:15 | ULT ---
Exam: Pelvic ultrasound HISTORY: Lower abdominal pain. COMPARISON: 08/13/2019 TECHNIQUE: Multiple grayscale and color Doppler images were obtained in a transabdominal pelvic ultra sound. Spectral analysis of the Doppler waveforms of the ovaries were performed. FINDINGS: UTERUS: Not visualized compatible with history of hysterectomy. RIGHT OVARY: Enlarged with large lobulated anechoic cystic structure involving the right ovary measur ing 6.7 cm x 5.8 cm x 7.4 cm. This lesion demonstrated a more heterogeneous and hypoechoic appearance on the prior exam. This cystic lesion on today's examination may represent 2 closely adjac ent cystic lesions which were suggested on prior exam. Largest dimension of cystic lesion in the prior study was 6.7 cm. Doppler evaluation spectral analysis of the right ovary demonstrates appears to be arterial and venous flow. CT examination also obtained on today's date demonstrates enlargement of the right ovarian cystic lesion with resolution of the left ovarian cystic lesion. LEFT OVARY:There is been interval resolution of the previously noted cyst associated with the left ov paxton. Doppler evaluation with spectral analysis of the left ovary demonstrates arterial and venous flow. IMPRESSION: 1. Interval enlargement of right ovarian cystic lesion. This did demonstrate a more hypoechoic slight ly heterogeneous appearance on prior ultrasound examination. This lesion has enlarged over a 6 month period of time. There is suggestion of 2 closely adjacent cystic structures versus a cyst with septation present. Follow-up ultrasound examination in 3 months is recommended. SNOW REMOVAL SUPERVISOR consultation is also suggested. 2. Resolution of left ovarian cyst. 3. Evidence of hysterectomy.
[2020-02-06] MEDS ORDERED: Acetaminophen 500 MG TAB PO SCH (19:15)
[2020-02-06] MEDS ORDERED: traMADol HCl 50 MG TAB PO SCH (19:15)
[2020-02-06] MEDS ORDERED: Ketorolac Tromethamine 30 MG/ML VIAL IVP SCH ×2 (19:15→21:30)
[2020-02-06] MEDS ORDERED: Lactated Ringer's 1,000 ML IV SCH (19:15)
[2020-02-06] MEDS ORDERED: Sodium Chloride 0.9% 10 ML ONE (19:44)
[2020-02-06] MEDS: Lactated Ringer's 1,000 ML IV SCH (21:09)
[2020-02-06] MEDS ORDERED: Zolpidem Tartrate 5 MG TAB PO SCH (21:30)
--- NOTE | 2020-02-07 02:00 | HP ---
HISTORY OF PRESENT ILLNESS: The patient is a 39-year-old female who presented to the emergency room today with acute onset abdominal pain that she reports began about 4'o clock this morning, waking her up from sleep. The patient reports the pain as being stabbing, localized primarily in her right lower quadrant, but at times more diffusely felt, especially with activity and movement. The patient reports receiving some morphine in the emergency room that helped bring her pain from 10/10 down to 7/10. The patient does admit to having pains like this in the past, but has not been as severe as today. The patient reports she was seen in August for similar symptoms just not as severe. She also reports that she had a hysterectomy about 12 years ago with the ovaries left intact. Hip flexion does help some with the symptoms. Ambulation and activity worsens them. PAST MEDICAL HISTORY: Significant for anxiety and baseline tachycardia. PAST SURGICAL HISTORY: Appendectomy, prior x2, open partial hysterectomy, orthopedic surgery on her right knee and tonsillectomy. SOCIAL HISTORY: The patient occasional etoh consumption of one glass of wine a week and on a occasion 4-5 beers over a weekend. She denies daily etoh use as documented elsewhere. The patient denies any other drug use. She does report half a pack per day of cigarettes. ALLERGIES: HYDROCODONE, WHICH CAUSES ITCHING AND PENICILLIN WHICH CAUSES HIVES. MEDICATIONS: 1. Patient recently was started on BuSpar 5 mg a day for anxiety. 2. Metoprolol 25 mg a day for tachycardia. PHYSICAL EXAMINATION: VITAL SIGNS: Blood pressure 147/70, temperature 98.2, pulse of 80, respiratory rate 16, saturating 99% on room air. GENERAL: She appears to be in no acute distress. She does appear somewhat uncomfortable. She appears older than her stated age and is missing most, if not all her teeth. LUNGS: Clear to auscultation bilaterally. HEART: Has a regular rate and rhythm. ABDOMEN: Shows focal tenderness in the right lower quadrant with some rebound tenderness. No other peritoneal signs. Negative heel tap. No radiating pain with palpation. Very little to no tenderness in the upper left lower quadrants. She has no tenderness nor masses felt in her groin. EXTREMITIES: Nontender, nonedematous. : Exam has been deferred. LABORATORY DATA: Shows a white count of 7.6, hemoglobin of 15, hematocrit of 45, MCV of 95, platelets of a 189,000. Sodium of 137, potassium of 3.7, BUN is 6, creatinine 0.68. AST of 18, ALT of 10. Urine significant for 1+ blood, negative for ketones, negative for nitrite, negative leukocyte esterase, negative for red blood cells, white blood cells or squamous cells and bacteria. IMAGING: CT scan shows fatty changes of liver and some fatty change of the wall of the colon. She has some interval enlargement of the right ovary measuring 4.8 x 8.1 cm and absent uterus. Ultrasound demonstrated hypoechoic appearing cystic structure on the right ovary with some enlargement over 6 months. Cyst measuring 6.7 x 5.8 x 7.4 cm on this ultrasound with a prior study measuring up to 6.7 cm, also present on ultrasound is Doppler flow showing venous and arterial flow in that right ovary. ASSESSMENT AND PLAN: The patient is a 39-year-old female with a history of alcohol abuse and right pelvic ovarian cyst that has been present for at least the last 6 months with some interval enlargement, presenting with acute onset abdominal pain. The patient is currently n.p.o. We will be attempting with the venous and the arterial flow present on Doppler and only mild enlargement in existing ovarian mass. Chances for ovarian torsion are fairly low, though possible. Other reasons that could be explaining her sudden onset abdominal pain could be rupture of ovarian cyst, hemorrhagic cyst, rupture of a mucinous cystadenoma. All these things could cause quite a bit of pain acutely with transition to a more diffuse pain. The patient will be given a trial of pain medication here in observation. Should we have any difficulty managing her pain, we will move forward with a diagnostic laparoscopy. Otherwise, the patient will remain n.p.o. with plans for surgery tomorrow in the daytime hours given the non emergent setting at this time. I will be re-evaluating the patient this evening after she has had her medications for about an hour and make further decisions at that time. Job ID: [id number] [facility]ERSKurtis
[2020-02-07] MEDS: Lactated Ringer's 1,000 ML IV SCH (06:24)
[2020-02-07 07:55] VITALS: BP 122/61; TEMP 98.4
--- NOTE | 2020-02-07 08:44 | PRG ---
DATE OF SERVICE: 02/07/2020 SUBJECTIVE: The patient is a 39-year-old female presenting with acute onset right lower quadrant pain and found to have an enlarging right adnexal mass. The patient was admitted for pain control and made n.p.o. with plans for diagnostic laparoscopy this morning. The patient this morning has been counseled of the risks and benefits of diagnostic laparoscopy with possible oophorectomy versus cystectomy. Risks include bleeding, infection, damage to bowel or bladder or blood vessels, removal of her ovary with change in hormonal function including earlier entry into menopause and also the risk of possible conversion to open surgery. The patient has expressed understanding and has provided informed written consent. This morning, the patient reports she did sleep fairly well last night with pain medication given prior to sleep in addition to Ambien and her metoprolol, which she reports makes her sleepy, but reports this morning that she is having quite a bit of pain with movement and activity as she got up to go to the bathroom. OBJECTIVE: VITAL SIGNS: This morning; blood pressure is 129/61, temperature 98.3, pulse of 80, and respiratory rate of 14. GENERAL: She appears to be in no acute distress. She is alert, oriented, cooperative, and pleasant to interact with. ASSESSMENT AND PLAN: The patient is a 39-year-old female, presents for pain management and treatment of a right adnexal mass, likely an enlarging ovarian cyst. A CA-125 has been ordered and is pending. COVID has been ordered and is pending. Consents have been completed. The oncoming physician is Dr. Welch, who will be performing surgery at her discretion. We are waiting time for surgery this morning. Job ID: [id number]
--- NOTE | 2020-02-07 09:02 | PDOC.BPN ---
- Brief Progress Note Encounter Date: 02/07/20 Encounter Time: 08:57 Discussed patient case with Dr. Merrill requesting his assistance, as I suspected she would have significant adhesions requiring exploratory laparotomy, rather than laparoscopy, due to her history of adhesions noted on prior surgeries requiring ex lap. Since her case is not emergent, it would be safer for her to be set up as an outpatient so a bowel prep can be performed. We also discussed her lack of funding, and she can be assisted in getting funding with follow up at [facility]. Patient understood and would like to eat, have a Dr. Reyes, and go downstairs to smoke. She will be discharged home with follow up arranged at [facility] with Dr. Merrill. Rx for ultram and ibuprofen on the chart.
[2020-02-07 16:28] LABS: SARS-CoV-2 MS2 Positive; SARS-CoV-2 N Gene Negative; SARS-CoV-2 S Gene Negative; SARS-CoV-2 by NAA Not Detected (NotDetected); SARS-CoV-2 orf1ab Negative
[2020-02-07] MEDS ORDERED: FLU VACC QS2020-21(6MOS UP)/PF 60 MCG/0.5 ML SYRINGE IM ONE (21:00)
--- NOTE | 2020-02-08 01:00 | DIS ---
DATE OF ADMISSION: 02/06/2020 DATE OF DISCHARGE: 02/07/2020 DIAGNOSES: 1. Right ovarian cyst. 2. Abdominal pain. PROCEDURES: 1. CT scan. 2. Transvaginal ultrasound. HOSPITAL COURSE: The patient was admitted on 02/05 for abdominal pain due to her right ovarian cyst. She was seen in August and noted to have a 6 cm cyst which has grown to be 7 cm at this point. The patient was placed on the operating room schedule for today due to pain. However, she required very minimal pain medicine overnight and was requesting food and to go outside to smoke. After discussing with the patient her history, she reports that she had a hysterectomy 12 years ago, which had to be open due to fibroids and scar tissue. I discussed the case with Dr. Merrill, who would have been the backup assist in case we had to open. Since this is not an emergent case, and she has a history of significant scar tissue, the recommendation is to schedule this on an outpatient basis so that she could have a bowel prep and possibly a robotic case rather than open. Dr. Merrill also said that if she is set up at [facility], they would help her get funding for the procedure and that it should not be a reason to proceed today. After discussing this with the patient and the risks of proceeding without a bowel prep, the patient agreed to be discharged home with Ultram and ibuprofen, and to follow up at [facility] to be scheduled outpatient. The patient reported her pain was better and that she was hungry. She was discharged home. FOLLOWUP: With Dr. Merrill at [facility]. DIET: Regular. ACTIVITIES: As tolerated. MEDICATIONS: 1. Ibuprofen 800 mg q.8 hours #30 with 1 refill. 2. Ultram 50 mg q.4 to 6 hours p.r.n. pain #20, no refills. Job ID: [id number] [facility]
== END 2020-02-07 10:10 | disposition home or self-care (01) ==
LOC: ERS 10:37 → 3SW 16:06
PROVIDERS: ADMIT Obstetrics & Gynecology; ATTEND Obstetrics & Gynecology
DX: N83.201 Unspecified ovarian cyst, right side (principal); F41.9 Anxiety disorder, unspecified; F17.210 Nicotine dependence, cigarettes, uncomplicated; F10.10 Alcohol abuse, uncomplicated; K76.0 Fatty (change of) liver, not elsewhere classified; Z79.899 Other long term (current) drug therapy; Z20.828 Contact with and (suspected) exposure to other viral communicable diseases; Z90.710 Acquired absence of both cervix and uterus
CPT/HCPCS: 36415; 74177; 76856; 80053; 81003; 81015; 81025; 83690; 85025; 86304; 86850; 86900; 86901; 87635; 93976; 96374; 96375; 96376; G0378; J1885; J2270; J2405; Q9967; U0003

== ENCOUNTER 2020-02-14 09:21 | Emergency (ER) | payer SELFPAY ==
[2020-02-14] MEDS ORDERED: Ketorolac Tromethamine 30 MG/ML VIAL ONE (10:46)
[2020-02-14] MEDS ORDERED: Ondansetron PF 4 MG/2 ML Vial ONE (11:02)
[2020-02-14 11:40] LABS: #Eosinphils 0.1 thou/uL (0.0-0.7); #Lymphocytes 2.1 thou/uL (1.20-3.40); #Monocytes 0.7 thou/uL (0.11-0.59); #Neutrophils 4.9 thou/uL (1.40-6.50); %Basophils 0.6 % (0.0-1.0); %Eosinophils 0.9 % (0.0-10.0); %Lymphocytes 26.5 % (21.0-51.0); %Monocytes 9.5 % (0.0-10.0); %Neutrophils 62.5 % (42.0-75.0); Hemoglobin 15.6 g/dL (12.0-16.0); Mean Corpuscular HGB CONC 32.4 g/dL (32.0-36.0); Mean Corpuscular Hemoglobin 30.9 pg (27.0-31.0); Mean Corpuscular Volume 95.5 fL (78.0-98.0); Mean Platelet Volume 10.3 fL (7.4-10.4); Platelet Count 226 thou/uL (130-400); Red Blood Cell (RBC) Count 5.04 mill/uL (4.20-5.40); White Blood Cell (WBC) Count 7.8 thou/uL (4.8-10.8)
[2020-02-14 11:44] LABS: BHCG - Serum Negative (NEGATIVE); Pregs Control Background? CLEAR/WHITE (CLR/WHITE); Pregs Control Bar Appear? YES (CONTROL BAR)
[2020-02-14 11:49] LABS: ALT (SGPT) 10 U/L (8-55); AST (SGOT) 20 U/L (5-34); Albumin 4.6 g/dL (3.5-5.0); Alkaline Phosphatase 147 U/L (40-110); Anion Gap 10 mmol/L (10-20); BUN (Urea Nitrogen) 6 mg/dL (7.0-18.7); Calc. Creatinine Clearance 0 mL/min (70-130); Calcium 9.6 mg/dL (7.8-10.44); Carbon Dioxide 28 mmol/L (22-29); Chloride 104 mmol/L (98-107); Estimated GFR-MDRD Greater than 90; Globulin 3.3 g/dL (2.4-3.5); Glucose 86 mg/dL (70-105); Potassium 4.1 mmol/L (3.5-5.1); Protein, Total 7.9 g/dL (6.0-8.3); Sodium 138 mmol/L (136-145)
--- NOTE | 2020-02-14 13:05 | ULT ---
ULTRASOUND PELVIC WITH DOPPLER: HISTORY: Pelvic pain. COMPARISON: Ultrasound 02/06/2020. FINDINGS: Real-time meyer scale, color, and spectral analysis of the pelvis was performed by transabdominal appr [facility] only. Adequate vascular flow to both ovaries. The right ovary measures 5.9 x 5.1 x 7.6 cm with a 7.6 cm cyst. The left ovary measures 1.6 x 1.7 x 2.5 cm. No free fluid in the pelvis. IMPRESSION: No significant resolution of the cystic mass of the right ovary. [employer] consultation advised. Underlyi ng cystic malignancy is a possibility given the internal septation. POS: OFF
[2020-02-14] MEDS ORDERED: Acetaminophen 500 MG TAB ONE (13:13)
== END 2020-02-14 13:18 | disposition home or self-care (01) ==
LOC: ERS 09:21
DX: N83.201 Unspecified ovarian cyst, right side (principal); R10.811 Right upper quadrant abdominal tenderness; F41.9 Anxiety disorder, unspecified; Z87.891 Personal history of nicotine dependence; Z79.899 Other long term (current) drug therapy
CPT/HCPCS: 76856; 80053; 84703; 85025; 93976; 96374; 96375; J1885; J2405

== ENCOUNTER 2020-02-27 13:25 | Emergency (ER) | payer MEDICAID, OTHER ==
[2020-02-27 13:57] LABS: #Basophils 0.1 thou/uL (0.0-0.2); #Eosinphils 0.1 thou/uL (0.0-0.7); #Lymphocytes 2.5 thou/uL (1.20-3.40); #Monocytes 0.8 thou/uL (0.11-0.59); #Neutrophils 4.3 thou/uL (1.40-6.50); %Basophils 0.9 % (0.0-1.0); %Eosinophils 1.1 % (0.0-10.0); %Lymphocytes 32.2 % (21.0-51.0); %Monocytes 9.9 % (0.0-10.0); %Neutrophils 55.9 % (42.0-75.0); Hemoglobin 15.6 g/dL (12.0-16.0); Mean Corpuscular Hemoglobin 32.8 pg (27.0-31.0); Mean Corpuscular Volume 96.5 fL (78.0-98.0); Mean Platelet Volume 9.1 fL (7.4-10.4); Platelet Count 218 thou/uL (130-400); RBC Distribution Width 11.8 % (11.5-14.5); Red Blood Cell (RBC) Count 4.75 mill/uL (4.20-5.40); White Blood Cell (WBC) Count 7.6 thou/uL (4.8-10.8)
[2020-02-27 14:18] LABS: ALT (SGPT) 13 U/L (8-55); AST (SGOT) 18 U/L (5-34); Albumin 4.2 g/dL (3.5-5.0); Alkaline Phosphatase 111 U/L (40-110); Anion Gap 11 mmol/L (10-20); BUN (Urea Nitrogen) 7 mg/dL (7.0-18.7); Bilirubin, Total 0.7 mg/dL (0.2-1.2); Calc. Creatinine Clearance 0 mL/min (70-130); Calcium 9.1 mg/dL (7.8-10.44); Carbon Dioxide 23 mmol/L (22-29); Chloride 105 mmol/L (98-107); Estimated GFR-MDRD Greater than 90; Glucose 104 mg/dL (70-105); Potassium 4.2 mmol/L (3.5-5.1); Protein, Total 7.2 g/dL (6.0-8.3); Sodium 135 mmol/L (136-145)
[2020-02-27] MEDS ORDERED: Ketorolac Tromethamine 30 MG/ML VIAL ONE (15:05)
[2020-02-27] MEDS ORDERED: Ondansetron PF 4 MG/2 ML Vial ONE (15:05)
[2020-02-27 15:29] LABS: Bacteria/HPF None Seen HPF (None Seen); Bilirubin Negative (Negative); Blood, Urine Trace (Negative); Clarity Clear (Clear); Glucose, Urine (Dipstick) Normal (Negative); Ketone, Urine Negative (Negative); Leukocyte Negative Leu/uL (Negative); Nitrite Negative (Negative); Protein, Urine (Dipstick) Negative (Neg-Trace); RBC/HPF 0-3 HPF (0-3); Specific Gravity, Urine 1.003 (1.002-1.036); Squamous Epithelial 0-3 HPF (0-3); Urobilinogen Normal mg/dL (Less than 2); WBC/HPF 0-3 HPF (0-3)
--- NOTE | 2020-02-27 16:24 | ULT ---
EXAM: Pelvic ultrasound HISTORY: Pelvic pain COMPARISON: 02/14/2020 TECHNIQUE: Multiple grayscale and color Doppler images were obtained in a transabdominal pelvic ultra sound. Spectral analysis of the Doppler waveforms of the ovaries were performed. FINDINGS: CERVIX: No evidence of nabothian cysts. UTERUS: Absent No free fluid is seen in the pelvis. RIGHT OVARY: Normal flow with a stable cystic-appearing mass measuring 7.2 cm in size LEFT OVARY: Normal flow without focal mass. IMPRESSION: Stable right ovarian cystic mass
== END 2020-02-27 16:58 | disposition home or self-care (01) ==
LOC: ERS 13:25
DX: N83.201 Unspecified ovarian cyst, right side (principal); F41.9 Anxiety disorder, unspecified; F43.0 Acute stress reaction; F17.210 Nicotine dependence, cigarettes, uncomplicated; Z79.899 Other long term (current) drug therapy
CPT/HCPCS: 36415; 76856; 80053; 81003; 81015; 85025; 93976; 96374; 96375; J1885; J2405

== ENCOUNTER 2020-10-16 00:04 | Emergency (ER) | payer SELFPAY ==
[2020-10-16 11:14] LABS: SARS-CoV-2 PCR by NAA Not Detected (NotDetected)
== END 2020-10-16 01:01 | disposition home or self-care (01) ==
LOC: ERS 00:04
DX: J30.9 Allergic rhinitis, unspecified (principal); Z20.822 Contact with and (suspected) exposure to COVID-19; Z79.899 Other long term (current) drug therapy
CPT/HCPCS: 99283; U0003; U0005

== ENCOUNTER 2020-11-02 00:26 | Emergency (ER) | payer SELFPAY | END 2020-11-02 02:51 | disposition home or self-care (01) | LOC: ERS 00:26 | DX: T65.91XA Toxic effect of unspecified substance, accidental (unintentional), initial encounter (principal) | CPT/HCPCS: 99282 ==

== ENCOUNTER 2021-06-21 15:31 | Emergency (ER) | payer SELFPAY ==
[2021-06-21] MEDS ORDERED: Fentanyl 100 MCG/2 ML VIAL ONE (15:57)
[2021-06-21 16:07] LABS: #Lymphocytes 0.8 thou/uL (1.20-3.40); #Monocytes 0.8 thou/uL (0.11-0.59); #Neutrophils 8.5 thou/uL (1.40-6.50); %Basophils 0.1 % (0.0-1.0); %Lymphocytes 7.4 % (21.0-51.0); %Monocytes 7.7 % (0.0-10.0); %Neutrophils 84.7 % (42.0-75.0); Mean Corpuscular HGB CONC 33.1 g/dL (32.0-36.0); Mean Corpuscular Hemoglobin 32.1 pg (27.0-31.0); Platelet Count 200 thou/uL (130-400); RBC Distribution Width 12.7 % (11.5-14.5); Red Blood Cell (RBC) Count 4.36 mill/uL (4.20-5.40)
[2021-06-21 16:12] LABS: BHCG - Serum Negative (NEGATIVE); Pregs Control Background? CLEAR/WHITE (CLR/WHITE); Pregs Control Bar Appear? YES (CONTROL BAR)
[2021-06-21 16:39] LABS: ALT (SGPT) 12 U/L (8-55); AST (SGOT) 15 U/L (5-34); Albumin 3.8 g/dL (3.5-5.0); Alkaline Phosphatase 95 U/L (40-110); Anion Gap 10 mmol/L (10-20); BUN (Urea Nitrogen) 5 mg/dL (7.0-18.7); Bilirubin, Total 0.6 mg/dL (0.2-1.2); Calc. Creatinine Clearance 0 mL/min (70-130); Calcium 8.3 mg/dL (7.8-10.44); Carbon Dioxide 23 mmol/L (22-29); Chloride 105 mmol/L (98-107); Globulin 2.7 g/dL (2.4-3.5); Glucose 98 mg/dL (70-105); Lipase 9 U/L (8-78); Potassium 3.4 mmol/L (3.5-5.1); Protein, Total 6.5 g/dL (6.0-8.3); Sodium 135 mmol/L (136-145)
[2021-06-21 16:54] LABS: Bacteria/HPF None Seen HPF (None Seen); Bilirubin Negative (Negative); Blood, Urine 2+ (Negative); Clarity Clear (Clear); Glucose, Urine (Dipstick) Normal (Negative); Ketone, Urine Trace mg/dL (Negative); Leukocyte Negative Leu/uL (Negative); Nitrite Negative (Negative); Protein, Urine (Dipstick) Negative (Neg-Trace); Specific Gravity, Urine 1.014 (1.002-1.036); Squamous Epithelial 0-3 HPF (0-3); Urobilinogen Normal mg/dL (Less than 2); WBC/HPF 0-3 HPF (0-3); pH, Urine 5.5 (5.0-9.0)
[2021-06-21] MEDS ORDERED: Morphine 4 MG/ML VIAL ONE (16:58)
== END 2021-06-21 17:40 | disposition home or self-care (01) ==
LOC: ERS 15:31
DX: N83.202 Unspecified ovarian cyst, left side (principal); B34.9 Viral infection, unspecified; F17.200 Nicotine dependence, unspecified, uncomplicated
CPT/HCPCS: 36415; 71045; 76856; 80053; 81003; 81015; 83605; 83690; 84703; 85025; 87040; 93005; 96374; 96375; J2270; J3010

== ENCOUNTER 2021-06-23 10:13 | Inpatient (IN) | payer SELFPAY ==
[~2021-06-23 10:13] MED LIST changes: +Iopamidol 370 76% 100 ML VIAL ONE; -Iopamidol-370 76% 500 ML 1 ML ONE
[2021-06-23 10:50] LABS: #Lymphocytes 1.1 thou/uL (1.20-3.40); #Monocytes 1.3 thou/uL (0.11-0.59); #Neutrophils 10.3 thou/uL (1.40-6.50); %Basophils 0.1 % (0.0-1.0); %Eosinophils 0.3 % (0.0-10.0); %Lymphocytes 8.5 % (21.0-51.0); %Monocytes 10.4 % (0.0-10.0); %Neutrophils 80.7 % (42.0-75.0); Mean Corpuscular HGB CONC 32.6 g/dL (32.0-36.0); Mean Corpuscular Hemoglobin 31.7 pg (27.0-31.0); Mean Corpuscular Volume 97.4 fL (78.0-98.0); Mean Platelet Volume 9.2 fL (7.4-10.4); Platelet Count 177 thou/uL (130-400); RBC Distribution Width 12.8 % (11.5-14.5); White Blood Cell (WBC) Count 12.8 thou/uL (4.8-10.8)
[2021-06-23 11:11] LABS: ALT (SGPT) 14 U/L (8-55); AST (SGOT) 19 U/L (5-34); Albumin 3.7 g/dL (3.5-5.0); Alkaline Phosphatase 88 U/L (40-110); Anion Gap 12 mmol/L (10-20); BUN (Urea Nitrogen) Less than 4 mg/dL (7.0-18.7); Bilirubin, Total 0.4 mg/dL (0.2-1.2); Calc. Creatinine Clearance 0 mL/min (70-130); Calcium 8.7 mg/dL (7.8-10.44); Carbon Dioxide 22 mmol/L (22-29); Chloride 104 mmol/L (98-107); Globulin 2.8 g/dL (2.4-3.5); Glucose 108 mg/dL (70-105); Lipase 77 U/L (8-78); Potassium 3.4 mmol/L (3.5-5.1); Protein, Total 6.5 g/dL (6.0-8.3); Sodium 135 mmol/L (136-145)
[2021-06-23 11:42] LABS: Bacteria/HPF None Seen HPF (None Seen); Bilirubin Negative (Negative); Blood, Urine 2+ (Negative); Clarity Clear (Clear); Glucose, Urine (Dipstick) Normal (Negative); Ketone, Urine Negative (Negative); Leukocyte Negative Leu/uL (Negative); Nitrite Negative (Negative); Protein, Urine (Dipstick) Negative (Neg-Trace); Specific Gravity, Urine 1.004 (1.002-1.036); Urobilinogen Normal mg/dL (Less than 2); WBC/HPF 0-3 HPF (0-3); pH, Urine 6.5 (5.0-9.0)
[2021-06-23] MEDS ORDERED: Fentanyl 100 MCG/2 ML VIAL ONE ×2 (11:46→13:35)
[2021-06-23] MEDS ORDERED: Ketorolac Tromethamine 30 MG/ML VIAL ONE (11:46)
[2021-06-23] MEDS ORDERED: Ondansetron PF 4 MG/2 ML Vial ONE (11:46)
[2021-06-23] MEDS ORDERED: Ondansetron PF 4 MG/2 ML Vial IVP PRN (13:15)
[2021-06-23] MEDS ORDERED: Acetaminophen 325 MG TAB PO PRN (13:15)
[2021-06-23] MEDS ORDERED: Ondansetron ODT 4 MG TAB SL PRN (13:15)
[2021-06-23] MEDS ORDERED: Vancomycin 25 MG/ML Oral SOLN PO SCH ×2 (13:15→17:00)
[2021-06-23] MEDS ORDERED: Potassium Chloride 20 MEQ TAB PO SCH (13:15)
[2021-06-23] MEDS: Sodium Chloride 0.9% 1,000 ML IV SCH ×3 (15:15→21:15)
[2021-06-23 15:31] VITALS: BMI 26.2
[2021-06-23] MEDS: Morphine 4 MG/ML VIAL SLOW IVP PRN ×2 (16:38→20:41)
[2021-06-23] MEDS: Vancomycin 25 MG/ML Oral SOLN PO SCH (20:36)
[2021-06-23] MEDS: metroNIDAZOLE 500 MG in Premix Bag 1 BAG IVPB SCH (20:37)
[2021-06-23 21:39] LABS: SARS-CoV-2 PCR by NAA Not Detected (NotDetected)
[2021-06-24] MEDS: Melatonin 3 MG TAB PO PRN ×2 (00:50→23:00)
[2021-06-24] MEDS: Vancomycin 25 MG/ML Oral SOLN PO SCH ×2 (00:52→04:20)
[2021-06-24] MEDS: metroNIDAZOLE 500 MG in Premix Bag 1 BAG IVPB SCH ×3 (00:52→15:33)
[2021-06-24] MEDS: Sodium Chloride 0.9% 1,000 ML IV SCH ×5 (00:53→22:39)
[2021-06-24] MEDS: Morphine 4 MG/ML VIAL SLOW IVP PRN ×5 (01:01→20:54)
[2021-06-24 06:06] LABS: #Eosinphils 0.1 thou/uL (0.0-0.7); #Lymphocytes 1.8 thou/uL (1.20-3.40); #Monocytes 1.4 thou/uL (0.11-0.59); #Neutrophils 5.9 thou/uL (1.40-6.50); %Basophils 0.4 % (0.0-1.0); %Eosinophils 0.8 % (0.0-10.0); %Lymphocytes 19.5 % (21.0-51.0); %Monocytes 14.8 % (0.0-10.0); %Neutrophils 64.5 % (42.0-75.0); Hemoglobin 11.5 g/dL (12.0-16.0); Mean Corpuscular HGB CONC 32.6 g/dL (32.0-36.0); Mean Platelet Volume 9.4 fL (7.4-10.4); Platelet Count 161 thou/uL (130-400); RBC Distribution Width 12.7 % (11.5-14.5); Red Blood Cell (RBC) Count 3.61 mill/uL (4.20-5.40); White Blood Cell (WBC) Count 9.2 thou/uL (4.8-10.8)
[2021-06-24 06:24] LABS: Anion Gap 10 mmol/L (10-20); BUN (Urea Nitrogen) Less than 4 mg/dL (7.0-18.7); Calc. Creatinine Clearance 126 mL/min (70-130); Calcium 8.1 mg/dL (7.8-10.44); Carbon Dioxide 23 mmol/L (22-29); Chloride 109 mmol/L (98-107); Glucose 89 mg/dL (70-105); Potassium 3.4 mmol/L (3.5-5.1); Sodium 139 mmol/L (136-145)
[2021-06-24] MEDS: Acetaminophen 325 MG TAB PO PRN (13:51)
[2021-06-24] MEDS: Ondansetron PF 4 MG/2 ML Vial IVP PRN ×2 (13:56→23:00)
[2021-06-25] MEDS: metroNIDAZOLE 500 MG in Premix Bag 1 BAG IVPB SCH ×4 (01:23→23:38)
[2021-06-25] MEDS: Morphine 4 MG/ML VIAL SLOW IVP PRN ×4 (01:23→22:56)
[2021-06-25] MEDS: Sodium Chloride 0.9% 1,000 ML IV SCH (04:59)
[2021-06-25] MEDS ORDERED: diphenhydrAMINE 25 MG CAP PO SCH (06:00)
[2021-06-25 08:01] LABS: #Eosinphils 0.1 thou/uL (0.0-0.7); #Lymphocytes 1.7 thou/uL (1.20-3.40); #Neutrophils 4.1 thou/uL (1.40-6.50); %Basophils 0.6 % (0.0-1.0); %Eosinophils 1.8 % (0.0-10.0); %Lymphocytes 24.6 % (21.0-51.0); %Monocytes 13.8 % (0.0-10.0); %Neutrophils 59.2 % (42.0-75.0); Hemoglobin 11.4 g/dL (12.0-16.0); Mean Corpuscular HGB CONC 31.9 g/dL (32.0-36.0); Mean Corpuscular Hemoglobin 30.9 pg (27.0-31.0); Mean Corpuscular Volume 96.9 fL (78.0-98.0); Mean Platelet Volume 9.4 fL (7.4-10.4); Platelet Count 169 thou/uL (130-400); RBC Distribution Width 12.8 % (11.5-14.5); Red Blood Cell (RBC) Count 3.68 mill/uL (4.20-5.40); White Blood Cell (WBC) Count 6.9 thou/uL (4.8-10.8)
[2021-06-25 08:21] LABS: Anion Gap 10 mmol/L (10-20); BUN (Urea Nitrogen) Less than 4 mg/dL (7.0-18.7); Calc. Creatinine Clearance 133 mL/min (70-130); Calcium 8.4 mg/dL (7.8-10.44); Carbon Dioxide 22 mmol/L (22-29); Chloride 108 mmol/L (98-107); Glucose 78 mg/dL (70-105); Potassium 3.2 mmol/L (3.5-5.1); Sodium 137 mmol/L (136-145)
[2021-06-25] MEDS ORDERED: busPIRone HCl 5 MG TAB PO PRN (10:54)
[2021-06-25] MEDS ORDERED: Potassium Chloride 20 MEQ TAB PO SCH (11:15)
[2021-06-25] MEDS: Potassium Chloride 20 MEQ TAB PO SCH ×2 (17:45→18:00)
[2021-06-25] MEDS: Ondansetron PF 4 MG/2 ML Vial IVP PRN (22:09)
[2021-06-25] MEDS: Melatonin 3 MG TAB PO PRN (22:12)
[2021-06-26 06:23] LABS: Anion Gap 12 mmol/L (10-20); BUN (Urea Nitrogen) Less than 4 mg/dL (7.0-18.7); Calc. Creatinine Clearance 143 mL/min (70-130); Calcium 8.2 mg/dL (7.8-10.44); Carbon Dioxide 24 mmol/L (22-29); Chloride 107 mmol/L (98-107); Glucose 90 mg/dL (70-105); Potassium 3.5 mmol/L (3.5-5.1); Sodium 139 mmol/L (136-145)
[2021-06-26] MEDS: Morphine 4 MG/ML VIAL SLOW IVP PRN ×2 (06:38→12:20)
[2021-06-26] MEDS ORDERED: diphenhydrAMINE 25 MG CAP PO SCH (06:45)
[2021-06-26] MEDS: metroNIDAZOLE 500 MG in Premix Bag 1 BAG IVPB SCH (08:32)
[2021-06-26] MEDS: Potassium Chloride 20 MEQ TAB PO SCH ×2 (08:32→08:37)
[2021-06-26] MEDS: Acetaminophen 325 MG TAB PO PRN (08:44)
[2021-06-26 09:23] VITALS: BP 154/105
[2021-06-26] MEDS ORDERED: Amlodipine 5 MG TAB PO SCH ×2 (10:30→11:00)
[2021-06-26 13:27] VITALS: TEMP 97.9
[2021-06-27] MEDS ORDERED: Amlodipine 5 MG TAB PO SCH (09:00)
== END 2021-06-26 15:03 | disposition home or self-care (01) | DRG 373 ==
LOC: ERS 10:13 → T4-B 12:48 → OBSVTOIN 06-24 09:27
PROVIDERS: ADMIT Internal Medicine; ATTEND Family Medicine
DX: A02.0 Salmonella enteritis (principal); E87.6 Hypokalemia; I10 Essential (primary) hypertension; F17.210 Nicotine dependence, cigarettes, uncomplicated; Z20.822 Contact with and (suspected) exposure to COVID-19; Z88.0 Allergy status to penicillin; Z88.8 Allergy status to other drugs, medicaments and biological substances; Z79.899 Other long term (current) drug therapy; Z90.710 Acquired absence of both cervix and uterus; Z90.89 Acquired absence of other organs
CPT/HCPCS: 36415; 74177; 80048; 80053; 81003; 81015; 83605; 83690; 85025; 87040; 87045; 87046; 87077; 87086; 87186; 87324; 87427; 87449; 96374; 96375; 96376; J0744; J1885; J2270; J2405; J3010; J7050; Q9967; U0003; U0005

== ENCOUNTER 2021-08-02 08:24 | Outpatient (CLI) | payer MEDICAID | END 2021-08-02 08:25 | disposition home or self-care (01) | LOC: BICULT 08:24 → EDSTATUS 09:00 | PROVIDERS: ATTEND Nurse Practitioner Women's Health | DX: Z87.42 Personal history of other diseases of the female genital tract (principal); N85.8 Other specified noninflammatory disorders of uterus | CPT/HCPCS: 76856; 93976 ==

== ENCOUNTER 2021-08-27 09:40 | Emergency (ER) | payer SELFPAY ==
[2021-08-27 10:35] LABS: Bilirubin Negative (Negative); Blood, Urine 1+ (Negative); Glucose, Urine (Dipstick) Normal (Negative); Ketone, Urine Negative (Negative); Leukocyte Negative Leu/uL (Negative); Nitrite Negative (Negative); Protein, Urine (Dipstick) 10 mg/dL (Neg-Trace); RBC/HPF 0-3 HPF (0-3); Specific Gravity, Urine 1.024 (1.002-1.036); Urobilinogen Normal mg/dL (Less than 2); WBC/HPF 0-3 HPF (0-3); pH, Urine 5.5 (5.0-9.0)
[2021-08-27 10:36] LABS: Bacteria/HPF Rare-Few HPF (None Seen); Clarity Hazy (Clear)
[2021-08-27 10:39] LABS: #Eosinphils 0.1 thou/uL (0.0-0.7); #Lymphocytes 1.8 thou/uL (1.20-3.40); #Monocytes 0.7 thou/uL (0.11-0.59); #Neutrophils 4.5 thou/uL (1.40-6.50); %Basophils 0.4 % (0.0-1.0); %Eosinophils 1.4 % (0.0-10.0); %Lymphocytes 25.5 % (21.0-51.0); %Monocytes 9.8 % (0.0-10.0); %Neutrophils 62.9 % (42.0-75.0); BHCG - Serum Negative (NEGATIVE); Hemoglobin 14.1 g/dL (12.0-16.0); Mean Corpuscular HGB CONC 32.4 g/dL (32.0-36.0); Mean Corpuscular Hemoglobin 30.8 pg (27.0-31.0); Mean Corpuscular Volume 95.3 fL (78.0-98.0); Platelet Count 223 thou/uL (130-400); Pregs Control Background? CLEAR/WHITE (CLR/WHITE); Pregs Control Bar Appear? YES (CONTROL BAR); RBC Distribution Width 13.5 % (11.5-14.5); Red Blood Cell (RBC) Count 4.56 mill/uL (4.20-5.40); White Blood Cell (WBC) Count 7.1 thou/uL (4.8-10.8)
[2021-08-27] MEDS ORDERED: Morphine 4 MG/ML VIAL ONE ×2 (10:44→12:28)
[2021-08-27] MEDS ORDERED: Ondansetron PF 4 MG/2 ML Vial ONE (10:44)
[2021-08-27 11:06] LABS: ALT (SGPT) 11 U/L (8-55); AST (SGOT) 18 U/L (5-34); Albumin 4.2 g/dL (3.5-5.0); Alkaline Phosphatase 115 U/L (40-110); Anion Gap 11 mmol/L (10-20); BUN (Urea Nitrogen) 7 mg/dL (7.0-18.7); Bilirubin, Total 0.5 mg/dL (0.2-1.2); Calc. Creatinine Clearance 0 mL/min (70-130); Calcium 8.9 mg/dL (7.8-10.44); Carbon Dioxide 23 mmol/L (22-29); Chloride 106 mmol/L (98-107); Glucose 84 mg/dL (70-105); Lipase 24 U/L (8-78); Potassium 4.3 mmol/L (3.5-5.1); Protein, Total 7.2 g/dL (6.0-8.3); Sodium 136 mmol/L (136-145)
[2021-08-27] MEDS ORDERED: Ketorolac Tromethamine 30 MG/ML VIAL ONE (12:36)
== END 2021-08-27 14:40 | disposition short-term general hospital (02) ==
LOC: ERS 09:40
DX: N83.202 Unspecified ovarian cyst, left side (principal); F17.210 Nicotine dependence, cigarettes, uncomplicated
CPT/HCPCS: 36415; 76856; 80053; 81003; 81015; 83690; 84703; 85025; 87086; 93005; 93976; 96374; 96375; 96376; J1885; J2270; J2405

== ENCOUNTER 2023-03-24 11:33 | Outpatient (CLI) | payer MEDICAID | END 2023-03-24 11:34 | disposition home or self-care (01) | LOC: BICMAMMO 11:33 | PROVIDERS: ATTEND Nurse Practitioner Family | DX: Z12.31 Encounter for screening mammogram for malignant neoplasm of breast (principal); Z80.3 Family history of malignant neoplasm of breast | CPT/HCPCS: 77067 ==

== ENCOUNTER 2024-06-15 14:17 | Outpatient (CLI) | payer BC | END 2024-06-15 14:18 | disposition home or self-care (01) | LOC: BICMAMMO 14:17 | PROVIDERS: ATTEND Nurse Practitioner Family | DX: Z12.31 Encounter for screening mammogram for malignant neoplasm of breast (principal); Z80.3 Family history of malignant neoplasm of breast | CPT/HCPCS: 77063; 77067 ==